=== PATIENT | female | born 1975 | race Caucasian/White ===

== ENCOUNTER 2017-12-12 21:32 | Emergency (ER) | payer BC ==
[~2017-12-12] VITALS: Ht 154.9 cm; Wt 95.3 kg
[~2017-12-12 21:32] MED LIST: CEPHALEXIN500 MG; CHANTIX0.5 MG; METFORMIN HCL500 MG
[2017-12-12] MEDS ORDERED: HYDROCODONE-AP1 EAC6 PO (22:03)
[2017-12-12] MEDS ORDERED: IBUPROFEN 800800 M1 PO (22:03)
[2017-12-12 22:35] VITALS: BP 144/77
== END 2017-12-12 22:36 | disposition home or self-care (01) ==
LOC: M.ERS 21:32
DX: S52.591A Other fractures of lower end of right radius, initial encounter for closed fracture (principal); E66.01 Morbid (severe) obesity due to excess calories; Z68.39 Body mass index [BMI] 39.0-39.9, adult; Z88.1 Allergy status to other antibiotic agents; W01.0XXA Fall on same level from slipping, tripping and stumbling without subsequent striking against object, initial encounter; Y93.89 Activity, other specified; Y92.89 Other specified places as the place of occurrence of the external cause; Y99.8 Other external cause status